=== PATIENT | female | born 1995 | race Hispanic/Latino ===

== ENCOUNTER 2025-07-11 09:36 | Inpatient (IN) | payer OTHER ==
[~2025-07-11] VITALS: Ht 152.4 cm; Wt 122.5 kg
[2025-07-11] MEDS ORDERED: LACTATED RINGER'S 1,000 ML IV PRN (13:30)
[2025-07-11] MEDS ORDERED: TERBUTALINE SULFATE 1 MG/ML AMP SUB-Q PRN (13:30)
[2025-07-11] MEDS ORDERED: MAGNESIUM HYDROXIDE/AL HYDROX 30 ML CUP PO PRN (13:30)
[2025-07-11] MEDS ORDERED: CALCIUM CARBONATE 500 MG CHEW PO PRN (13:30)
[2025-07-11] MEDS ORDERED: LIDOCAINE HCL 1% 30 ML SDV INJ PRN (13:30)
[2025-07-11 14:21] LABS: MCH 24.6 PG (25.6-32.2); MCHC 31.7 g/dL (32.2-35.5); MCV 77.5 fL (79.4-94.8); RBC 4.31 M/uL (3.93-5.22)
[2025-07-11 14:31] VITALS: BP 129/65
[2025-07-11 14:54] LABS: ABO O; ANTIBODY SCREEN NEGATIVE; RH POSITIVE
[2025-07-11] MEDS ORDERED: ACETAMINOPHEN 325 MG TAB PO ONE (15:00)
[2025-07-11 16:19] LABS: AMPHETAMINES, URINE NEGATIVE (NEGATIVE); BARBITURATES, URINE NEGATIVE (NEGATIVE); BENZODIAZEPINE, URINE NEGATIVE (NEGATIVE); CANNABINOID, URINE NEGATIVE (NEGATIVE); COCAINE, URINE NEGATIVE (NEGATIVE); ECSTASY, URINE NEGATIVE (NEGATIVE); FENTANYL, URINE NEGATIVE (NEGATIVE); METHADONE, URINE NEGATIVE (NEGATIVE); OPIATES, URINE NEGATIVE (NEGATIVE); OXYCODONE, URINE NEGATIVE (NEGATIVE); PHENCYCLIDINE, URINE NEGATIVE (NEGATIVE)
[2025-07-11] MEDS ORDERED: OXYTOCIN/0.9 % SODIUM CHLORIDE 500 ML IV SCH (18:30)
[2025-07-11] MEDS ORDERED: OXYTOCIN/0.9 % SODIUM CHLORIDE 30 UNITS/500 ML BAG IV SCH (18:45)
[2025-07-11] MEDS ORDERED: fentaNYL citrate 100 MCG/2 ML VIAL ONE (22:08)
[2025-07-11] MEDS ORDERED: ROPIVACAINE 0.2% 200 ML BAG ONE (22:08)
[2025-07-11] MEDS ORDERED: ROPIVACAINE 0.2% 200 ML BAG EPIDURAL SCH (22:45)
[2025-07-11] MEDS ORDERED: LACTATED RINGER'S 500 ML IV PRN (22:45)
[2025-07-11] MEDS ORDERED: ePHEDrine sulfate 5 MG/ML SYRINGE IV PRN (22:45)
[2025-07-11] MEDS ORDERED: LACTATED RINGER'S 2,000 ML IV ONE (22:45)
[2025-07-11] MEDS ORDERED: ePHEDrine KIT FOR FBC IV ONE (22:53)
[2025-07-12] MEDS ORDERED: TRANEXAMIC ACID IN NACL,ISO-OS 0 ML IV ONE (07:20)
[2025-07-12] MEDS ORDERED: OXYCODONE/APAP 5/325 TAB PO PRN (07:45)
[2025-07-12] MEDS ORDERED: MAGNESIUM HYDROXIDE 30 ML UDC PO PRN (07:45)
[2025-07-12] MEDS ORDERED: WITCH HAZEL/GLYCERIN 1 EA PAD TOP PRN (07:45)
[2025-07-12] MEDS ORDERED: BENZOCAINE 60 ML AEROSOL TOP PRN (07:45)
[2025-07-12] MEDS ORDERED: LIDOCAINE 2% VISCOUS 6 ML SYR TOP ONE ×2 (07:45)
[2025-07-12] MEDS ORDERED: CALCIUM CARBONATE 500 MG CHEW PO PRN (07:45)
[2025-07-12] MEDS ORDERED: HYDROCORTISONE ACETATE 25 MG SUPP PR PRN (07:45)
[2025-07-12] MEDS ORDERED: IBUPROFEN 600 MG TAB PO PRN (07:45)
[2025-07-12] MEDS ORDERED: OXYTOCIN/0.9 % SODIUM CHLORIDE 500 ML IV SCH (07:45)
[2025-07-12] MEDS ORDERED: MAGNESIUM HYDROXIDE/AL HYDROX 30 ML CUP PO PRN (07:45)
[2025-07-12 08:44] LABS: IS CROSSMATCH COMPATIBLE
[2025-07-12] MEDS ORDERED: SENNOSIDES/DOCUSATE 1 EA TAB PO SCH (09:00)
[2025-07-12 09:03] LABS: BASOPHILS 0.1 % (0.1-1.2); EOSINOPHILS 0.1 % (0.7-5.8); LYMPHOCYTES 6.3 % (19.3-51.7); MCH 24.6 PG (25.6-32.2); MCHC 31.2 g/dL (32.2-35.5); MCV 78.9 fL (79.4-94.8); MONOCYTES 2.9 % (4.7-12.5); NEUTROPHILS 90.2 % (34.0-71.1); RBC 4.22 M/uL (3.93-5.22)
[2025-07-12] MEDS ORDERED: ACETAMINOPHEN 325 MG TAB PO PRN (09:15)
[2025-07-13 05:23] LABS: MCH 24.9 PG (25.6-32.2); MCHC 31.3 g/dL (32.2-35.5); MCV 79.8 fL (79.4-94.8); RBC 3.61 M/uL (3.93-5.22)
--- NOTE | 2025-07-13 09:15 | PR ---
[facility] [address] [place], [place] [address] Signed PP Progress Notes Datetime Report Generated by CPN: 07/13/2025 09:15 SUBJECTIVE: [id number] Pain: Within Normal Limits Nausea/Vomiting: Denies Flatus: Yes Bowel Movement: No Vital Signs: [id number] Vital Signs: Reviewed; Within Normal Limits Cardiovascular: Normal Respiratory: Normal Abdomen/Uterus: Normal Lochia: Normal Vulva/Perineum: Not Done Breasts: Not Done CVA Tenderness: Normal Extremities: Normal Incision: Not Applicable Progress: Abnormal Exam Comments: Fundus firm U-2 nontender IMPRESSION/PLAN/PROCEDURES: [id number] Impression: Normal Progression Plan: Discharge Progress Notes: Pt seen and examined. Doing well. Ambulating, voiding, and tolerating full diet. Pain and lochia minimal. Struggling with / latch somewhat. No other concerns. Desires d/c home. Will consider f/u consultation. Planning Mirena IUD for pp contraception. Reviewed d/c instruction / medications in detail. All questions answered. F/U for 6 wk pp visit. Signing Physician: Christin Fong DO Copies: ~ *Electronically Signed* 07/13/25 0915 CHRISTIN FONG (JAYME) DO PATIENT NAME: ROSS ASHTON PROGRESS NOTE DATE OF : 93 PHYSICIAN: CHRISTIN FONG (JD) DO RPT #: [id number] REPORT IS CONFIDENTIAL AND NOT TO BE RELEASED WITHOUT AUTHORIZATION
== END 2025-07-13 13:25 | disposition home or self-care (01) | DRG 807 ==
LOC: FBC 09:36
PROVIDERS: ADMIT Advanced Practice Midwife; ATTEND Advanced Practice Midwife
PROC: 00HU33Z Insertion of Infusion Device into Spinal Canal, Percutaneous Approach (ICD-10-PCS; 2025-07-11)
PROC: 3E0R3BZ Introduction of Anesthetic Agent into Spinal Canal, Percutaneous Approach (ICD-10-PCS; 2025-07-11)
PROC: 3E0P7VZ Introduction of Hormone into Female Reproductive, Via Natural or Artificial Opening (ICD-10-PCS; 2025-07-11)
PROC: 4A1HXCZ Monitoring of Products of Conception, Cardiac Rate, External Approach (ICD-10-PCS; 2025-07-11)
PROC: 3E033VJ Introduction of Other Hormone into Peripheral Vein, Percutaneous Approach (ICD-10-PCS; 2025-07-11)
PROC: 10E0XZZ Delivery of Products of Conception, External Approach (ICD-10-PCS; principal; 2025-07-12)
PROC: 10907ZC Drainage of Amniotic Fluid, Therapeutic from Products of Conception, Via Natural or Artificial Opening (ICD-10-PCS; 2025-07-12)
DX: O69.81X0 Labor and delivery complicated by cord around neck, without compression, not applicable or unspecified (principal); Z37.0 Single live birth; Z88.5 Allergy status to narcotic agent; O76 Abnormality in fetal heart rate and rhythm complicating labor and delivery; Z3A.36 36 weeks gestation of pregnancy
CPT/HCPCS: 01960; 36415; 80307; 85025; 85027; 86850; 86900; 86901; 86922; A9270; J2405; J2795; J3010; J7121